=== PATIENT | male | born 1965 | race American Indian/Alaskan Native ===

== ENCOUNTER 2020-12-14 08:41 | Emergency (ER) | payer MEDICARE ==
[2020-12-14 08:54] VITALS: BP 127/76
[2020-12-14] MEDS ORDERED: ACETAMINOPHEN 500 MG TAB PO ONE (08:54)
--- NOTE | 2020-12-14 08:57 | Emergency Department Report ---
ED Extremity Problem HPI - General Chief complaint: Extremity Injury, Lower Stated complaint: LEFT LEG PAIN Time Seen by Provider: 12/14/20 08:53 Source: patient Mode of arrival: Ambulatory Limitations: No Limitations - History of Present Illness Initial comments: 55 yr old male presents to ED c/o bilateral knee pain, more so left knee. Patient reports history of chronic bilateral knee pain secondary to arthritis but he states about a week ago after doing some heavy lifting he started having pain to the posterior left knee. Patient states that he had some swelling to the posterior left knee yesterday but this has since improved. He states that he has been taking his usual doses of diclofenac and baclofen without much relief of his pain. He states pain is worse with ambulation. [facility], he states that he was informed to come to the ER to rule out a blood clot. He denies any history of DVT or PEs in the past. He denies any associated calf pain, chest pain, shortness of breath, fever or chills. MD Complaint: joint swelling, joint paint -: week(s) (1) - Related Data Previous Rx's Medication Instructions Recorded Last Taken Type traMADoL [Ultram] 50 mg PO Q4HR PRN #12 tablet 12/14/20 Unknown Rx Allergies Allergy/AdvReac Type Severity Reaction Status Date / Time No Known Allergies Allergy Unverified 12/14/20 08:46 ED Review of Systems ROS: Stated complaint: LEFT LEG PAIN Other details as noted in HPI Comment: All other systems reviewed and negative Respiratory: denies: cough, shortness of breath, SOB with exertion, SOB at rest, wheezing Cardiovascular: denies: chest pain, palpitations Musculoskeletal: joint swelling, arthralgia Neurological: denies: headache, weakness, paresthesias Psychiatric: denies: anxiety, depression Hematological/Lymphatic: denies: easy bleeding, easy bruising ED Past Medical Hx - Past Medical History Previous Medical History?: Yes Hx Congestive Heart Failure: Yes Additional medical history: Leg pain, Back pain, Right knee pain - Surgical History Past Surgical History?: Yes Additional Surgical History: Lipoma removed from left leg - Social History Smoking Status: Current Every Day Smoker Substance Use Type: Alcohol, Prescribed - Medications Home Medications: Home Medications Medication Instructions Recorded Confirmed Last Taken Type traMADoL [Ultram] 50 mg PO Q4HR PRN #12 tablet 12/14/20 Unknown Rx ED Physical Exam - General Limitations: No Limitations General appearance: alert, in no apparent distress - Head Head exam: Present: atraumatic, normocephalic, normal inspection - Respiratory Respiratory exam: Present: normal lung sounds bilaterally. Absent: respiratory distress - Cardiovascular Cardiovascular Exam: Present: regular rate - Extremities Exam Extremities exam: Present: normal inspection, full ROM, tenderness (Mild, left posterior knee, left medial and lateral knee), calf tenderness (Mild left). Absent: joint swelling - Neurological Exam Neurological exam: Present: alert, oriented X3, CN II-XII intact, normal gait - Psychiatric Psychiatric exam: Present: normal affect, normal mood - Skin Skin exam: Present: intact ED Course Vital Signs 12/14/20 12/14/20 12/14/20 08:50 09:24 09:41 Temperature 97.6 F Pulse Rate 80 Respiratory 18 20 18 Rate Blood Pressure 127/76 O2 Sat by Pulse 100 Oximetry ED Medical Decision Making - Radiology Data Radiology results: report reviewed Critical care attestation.: If time is entered above; I have spent that time in minutes in the direct care of this critically ill patient, excluding procedure time. ED Disposition Clinical Impression: Knee pain, acute Disposition: DC-01 TO HOME OR SELFCARE Is pt being admited?: No Does the pt Need Aspirin: No Condition: Stable Instructions: Chronic Knee Pain, Adult Additional Instructions: Continue your regular home medications for pain. Take the ultram as prescribed. Follow up with [facility] as instructed or PCP. Return to ED if worse. Prescriptions: traMADoL [Ultram] 50 mg PO Q4HR PRN #12 tablet PRN Reason: Pain Referrals: JARED JOLLY [Primary Care Provider] - 3-5 Days Time of Disposition: 11:24
--- NOTE | 2020-12-14 10:32 | Vascular Lab Report ---
. DUPLEX DOPPLER LOWER EXTREMITY VEINS, LEFT INDICATION / CLINICAL INFORMATION: posterior knee pain. TECHNIQUE: Duplex doppler imaging was performed through the veins of the left lower extremity using venous compr ession and other maneuvers. COMPARISON: None available. FINDINGS: LEFT COMMON FEMORAL VEIN: Negative. LEFT FEMORAL VEIN: Negative. LEFT POPLITEAL VEIN: Negative. LEFT CALF VEINS: Negative. ADDITIONAL FINDINGS: None. IMPRESSION: 1. No sonographic evidence for DVT in the left lower extremity. Signer Name: Nelson Tovar MD Signed: 12/14/2020 10:27 AM Workstation Name: [id number]
== END 2020-12-14 11:36 | disposition home or self-care (01) ==
LOC: ED 08:41
DX: M25.562 Pain in left knee (principal); M25.561 Pain in right knee; I50.9 Heart failure, unspecified; F17.200 Nicotine dependence, unspecified, uncomplicated; Z79.899 Other long term (current) drug therapy
CPT/HCPCS: 99283